=== PATIENT | female | born 1990 | race Caucasian/White ===

== ENCOUNTER → 2018-01-17 11:37 | Outpatient (CLI) | payer MEDICAID, SELFPAY ==
[2018-01-17 12:27] LABS: Hematocrit 38.7 % (37-47); Hemoglobin 13.7 g/dl (12.0-15.0); Mean Corp Hgb Conc 35.4 g/gl (32-36); Mean Corpuscular Hgb 32.6 pg (27.0-32.0); Mean Corpuscular Volume 92.1 fL (81-99); Mean Platelet Vol. 10.7 fl (6.2-12.0); Platelet Count 252 K/mm3 (150-450); RBC Distribution Width CV 11.8 % (11.6-14.6); RBC Distribution Width SD 39.5 fl (35.1-43.9); White Blood Count 5.4 K/mm3 (4.4-11.0)
[2018-01-17 12:37] LABS: Scan Indicated on CBC? Y/N NO
[2018-01-17 12:55] LABS: ALB/GLOB Ratio 1.1 RATIO (0.9-2.4); AST(SGOT) 15 U/L (15-37); Alanine Aminotransfer ALT/SGPT 17 U/L (13-56); Albumin, Serum 4.1 g/dL (3.2-5.0); Alkaline Phosphatase 73 U/L (45-117); Anion Gap 5 (5-15); BUN 11 mg/dL (7-18); Calcium,Total 8.5 mg/dL (8.5-10.1); Chloride 105 mmol/L (98-107); Creatinine, Serum 0.65 mg/dL (0.55-1.02); EST Glomerular Filtration Rate 116 mL/min (>60); Est Glom Filt Rate - Afr Amer 141 mL/min (>60); Globulin 3.7 g/dL (2.2-4.2); Glucose 83 mg/dL (74-106); Potassium 3.8 mmol/L (3.5-5.1); Protein, Total 7.8 g/dL (6.4-8.2); Sodium Level 138 mmol/L (136-145); T4 Free Direct 1.06 ng/dL (0.76-1.46); Thyroid Stim Hormone (TSH) 2.63 uIU/mL (0.358-3.74)
[2018-01-19 10:11] LABS: Anti-Thyroglobulin AB < 1.0 IU/mL (0.0-0.9); Thyroglobulin, Serum Qt. 3.4 ng/mL (1.5-38.5); Thyroid Peroxidase AB 18 IU/mL (0-34)
== END ==
PROVIDERS: Family Provider Family Medicine; PCP Family Medicine; Visit Provider Nurse Practitioner Adult Health
DX: R53.83 Other fatigue (principal); R63.5 Abnormal weight gain
CPT/HCPCS: 36415; 80053; 84432; 84439; 84443; 85027; 86376; 86800

== ENCOUNTER 2018-03-06 12:53 | Emergency (ER) | payer MEDICAID, SELFPAY ==
[2018-03-06 12:54] VITALS: BP 113/79; PULSE 78; RESP 16; TEMP 36.6; O2SAT 100; BMI 24.0
--- NOTE | 2018-03-06 13:47 | CT_ITS ---
STUDY: CT BRAIN WITHOUT CONTRAST REASON FOR EXAM: Female, 27 years old. Acute onset of vertigo. RADIATION DOSAGE (If Supplied By Facility): CTDIvol = ( 44.99 ) mGy, DLP = ( 745.49 ) mGycm TECHNIQUE: Transaxial CT imaging of the brain was performed without administration of intravenous contrast material. Individualized dose optimization techniques were used for this CT. COMPARISON: None. FINDINGS: Normal soft tissue structures. Normal calvarium. Normal size ventricles and extra-axial spaces for the patient's age. Normal white matter tracts of the cerebral hemispheres. Normal basal ganglia and thalami. Normal brainstem. Normal cerebellum. There is no intracranial hemorrhage. There are no findings of an acute ischemic infarction. Minimal degree of mucosal thickening of the medial aspect of the left maxillary sinus. CT/Brain/Head without Contrast IMPRESSION: Normal unenhanced CT scan of the brain. Electronically Signed: Ascencion Grimm MD at 14:40 EDT Tel [phone], Service support ,
[2018-03-06] MEDS: diazePAM 5 MG Tablet PO (13:52)
--- NOTE | 2018-03-06 15:54 | ED.DCSUM_ITS ---
- ER Visit Summary Date of Service: 03/06/18 Chief Complaint: Vertigo History of Present Illness: The patient is a 27 F with vertigo that started suddenly about 5 hours prior to arrival. It is intermittent. She has brief paroxysms of vertigo when she moves her head in any direction she is asymptomatic when she looks straight ahead. She has no medical problems no recent fever or chills although she is complaining of rhinorrhea and congestion Physical Examination: Not appear in acute distress. Moist mucous membranes, no obvious facial deformity. There is upper airway congestion and left-sided otitis media No C-spine tenderness supple neck. Regular rate and rhythm without any obvious murmurs Clear lungs bilaterally speaking in full sentences without any obvious respiratory distress Abdomen soft and nontender no guarding or rebound Moves all extremities without any difficulty or pain. Skin does not show any obvious rashes or lesions, no trauma. Alert oriented ?3 with no gross focal deficit. She has some leftward nystagmus. She has compensated saccade especially with leftward movement. Test Results: CT of the head is unremarkable. Emergency Department Course and Treatment: Patient received diazepam her symptoms are now resolved. This may recur. I will treat her otitis media as well as treat her symptomatically. Her neurological exam is normal. Disposition: Discharge stable condition Impression: Benign paroxysmal positional vertigo Otitis media This note was generated with [employer] dictation software. It may contain incorrect words, spelling, and punctuation that were not noted in review of the chart prior to signing ED Disposition - Plan for ED Patient: Chief Complaint: Dizziness Referrals: Jay Vanegas MD [Primary Care Provider] -
--- NOTE | 2018-03-06 15:57 | ED.DEP ---
ED Disposition - Plan for ED Patient: Disposition: Home or Assisted Living Chief Complaint: Dizziness Instructions: ED BPV Vertigo Prescriptions: Azithromycin 250 mg PO DAILY #4 tab Diazepam [Valium] 5 mg PO BID #15 tab Meclizine HCl 50 mg PO BID #20 tab Referrals: Jay Vanegas MD [Primary Care Provider] - 2 Days
[2018-03-06] MEDS: Meclizine 12.5 MG Tablet 50 MG PO (16:13)
[2018-03-06] MEDS: Azithromycin 250 MG Tablet 500 MG PO (16:13)
[2018-03-06 16:15] VITALS: BP 109/69; PULSE 90; RESP 16; O2SAT 99
== END 2018-03-06 16:20 | disposition home or self-care (01) ==
PROVIDERS: Emergency Provider Emergency Medicine; Family Provider Family Medicine; PCP Family Medicine
DX: H81.10 Benign paroxysmal vertigo, unspecified ear (principal); H66.90 Otitis media, unspecified, unspecified ear
CPT/HCPCS: 70450; 99283

== ENCOUNTER → 2018-05-09 12:58 | Outpatient (CLI) | payer MEDICAID, SELFPAY ==
[2018-05-09 14:18] LABS: hCG Titer Quant., Serum < 1 mIU/mL (<9 non-preg)
== END ==
PROVIDERS: Family Provider Family Medicine; PCP Family Medicine; Visit Provider Nurse Practitioner Adult Health
DX: N91.2 Amenorrhea, unspecified (principal)
CPT/HCPCS: 36415; 84702